=== PATIENT | female | born 1995 | race African-American/Black ===

== ENCOUNTER 2018-12-29 11:03 | Emergency (ER) | payer OTHER, SELFPAY ==
--- NOTE | 2018-12-29 11:51 | RAD ---
EXAM: Two views chest PROVIDED CLINICAL HISTORY: Cough COMPARISON: None FINDINGS: Cardiac and mediastinal silhouette appears within normal limits. Lungs appear free of significant opa city. No pleural fluid or pneumothorax apparent. IMPRESSION: No evidence for an acute cardiopulmonary process.
[2018-12-29 12:04] LABS: Bilirubin Negative (Negative); Blood, Urine Moderate (Negative); Clarity TURBID (Clear); Glucose, Urine (Dipstick) Negative (Negative); Leukocyte Large (Negative); Nitrite Positive (Negative); Protein, Urine (Dipstick) 100 mg/dL (Neg-Trace); pH, Urine 6.5 (5.0-9.0)
[2018-12-29 12:07] LABS: Bacteria/HPF 4+ HPF (None Seen); Hyaline Casts/LPF 7-10 HYALINE CAST LPF (0-3 Hyaline); Pathc Cast-AUWi Flag 2.17 (0-2.49); Squamous Epithelial 0-3 HPF (0-3)
[2018-12-29 13:56] LABS: Pregnancy Test - Urine (BHCG) Negative (Negative); Pregu Control Background? CLEAR/WHITE (CLR/WHITE); Pregu Control Bar Appear? YES (CONTROL BAR)
== END 2018-12-29 15:01 | disposition home or self-care (01) ==
LOC: ERS 11:03
DX: N39.0 Urinary tract infection, site not specified (principal); J06.9 Acute upper respiratory infection, unspecified; R11.0 Nausea
CPT/HCPCS: 71046; 81003; 81015; 81025; 87077; 87086; 87186

== ENCOUNTER 2019-01-13 10:13 | Emergency (ER) | payer SELFPAY ==
--- NOTE | 2019-01-13 11:56 | RAD ---
RADIOGRAPH CHEST 2 VIEWS: DATE: 01/13/2019 HISTORY: 23-year-old female with cough and chest pain. FINDINGS: The lungs are clear. The cardiomediastinal silhouette and hilar shadows appear normal. There is no pl eural effusion or pneumothorax. No osseous abnormality is identified. IMPRESSION: Normal
[2019-01-13] MEDS ORDERED: Dexamethasone 4 MG TAB ONE (12:17)
[2019-01-13] MEDS ORDERED: Dexamethasone 10 MG/ML VIAL ONE (12:17)
== END 2019-01-13 12:26 | disposition home or self-care (01) ==
LOC: ERS 10:13
DX: R05 Cough (principal)
CPT/HCPCS: 71046; 96372; J1100; J8540

== ENCOUNTER 2019-01-27 18:24 | Emergency (ER) | payer SELFPAY | END 2019-01-27 20:34 | disposition left against medical advice (07) | LOC: ERS 18:24 | DX: Z53.21 Procedure and treatment not carried out due to patient leaving prior to being seen by health care provider (principal) ==

== ENCOUNTER 2019-02-18 07:59 | Emergency (ER) | payer SELFPAY ==
[2019-02-18] MEDS ORDERED: Albuterol Sulfate 2.5 mg/0.5 ml Neb ONE (10:24)
--- NOTE | 2019-02-18 10:47 | RAD ---
EXAM: Chest 2 views: HISTORY: Cough COMPARISON: 01/13/2019 FINDINGS: There is a normal-sized cardiomediastinal silhouette. There is no evidence of consolidation, mass, or pleural effusion. The bones are unremarkable. IMPRESSION: No evidence of acute cardiopulmonary disease
[2019-02-18] MEDS ORDERED: Acetaminophen 500 MG TAB ONE (11:10)
[2019-02-18] MEDS ORDERED: Ondansetron ODT 4 MG TAB ONE (11:10)
[2019-02-18] MEDS ORDERED: Azithromycin 250 MG TAB ONE (11:10)
== END 2019-02-18 11:41 | disposition home or self-care (01) ==
LOC: ERS 07:59
DX: J20.9 Acute bronchitis, unspecified (principal)
CPT/HCPCS: 71046; 87804; 94640; J7611; J7620; Q0162

== ENCOUNTER 2019-08-10 21:47 | Emergency (ER) | payer OTHER, SELFPAY ==
[2019-08-10 22:15] LABS: #Basophils 0.1 thou/uL (0.0-0.2); #Eosinphils 0.1 thou/uL (0.0-0.7); #Monocytes 0.7 thou/uL (0.11-0.59); #Neutrophils 7.2 thou/uL (1.40-6.50); %Basophils 0.8 % (0.0-1.0); %Lymphocytes 26.7 % (21.0-51.0); %Monocytes 6.6 % (0.0-10.0); %Neutrophils 64.9 % (42.0-75.0); Hemoglobin 12.6 g/dL (12.0-16.0); Mean Corpuscular Hemoglobin 30.8 pg (27.0-31.0); Mean Corpuscular Volume 90.6 fL (78.0-98.0); Mean Platelet Volume 8.6 fL (7.4-10.4); Platelet Count 282 thou/uL (130-400); RBC Distribution Width 11.2 % (11.5-14.5); Red Blood Cell (RBC) Count 4.11 mill/uL (4.20-5.40); White Blood Cell (WBC) Count 11.1 thou/uL (4.8-10.8)
[2019-08-10 22:20] LABS: BHCG - Serum POSITIVE (NEGATIVE); Pregs Control Background? CLEAR/WHITE (CLR/WHITE); Pregs Control Bar Appear? YES (CONTROL BAR)
--- NOTE | 2019-08-10 23:41 | ULT ---
TRANSABDOMINAL TRANSVAGINAL PELVIC ULTRASOUND DATE:: 08/10/2019 10:19 PM CLINICAL HISTORY: with vaginal spotting. COMPARISON: None. TECHNIQUE: Grayscale, color Doppler and spectral Doppler images were obtained of the pelvis see a tra nsabdominal transvaginal approach Uterus: Size: 8.0 x 4.0 x 5.6 cm Mass: None Cervix: Within normal limits Endometrium: There is a single live intrauterine gestation with a pole and yolk sac identified. [place]-rump length measures 1.47 cm giving an estimated gestational age by ultrasound of 7 weeks 5 days. Estimated due date is March 22, 2020. There is a para gestational hemorrhage seen along the inferior and left lateral aspect of the gestati onal sac occupying less than 25% of the circumference. The largest collection measures 1.0 x 0.5 cm. Ovaries: Size: right measures 3.2 x 1.9 x 2.7 cm; left measures 4.2 x 3.0 x 4.5 cm Mass: There is a left ovarian cyst measuring 3.1 x 2.6 x 2.8 cm. Flow: Normal Cul-de-sac: Mild free fluid IMPRESSION: Single live intrauterine gestation with size and dates as above. There is a small subchorionic hemorr cindy seen along the inferior and left lateral aspect of the gestational sac. This occupies less than 25% of the gestational sac circumference. Continued sonographic and clinical follow-up is recomm ended. Left ovarian cyst measuring 3.1 cm. Mild free fluid
[2019-08-11 00:06] LABS: Bilirubin Negative (Negative); Blood, Urine 3+ (Negative); Clarity Turbid (Clear); Glucose, Urine (Dipstick) Normal (Negative); Leukocyte 500 Leu/uL (Negative); Nitrite Negative (Negative); Protein, Urine (Dipstick) 50 mg/dL (Neg-Trace); RBC/HPF Greater than 50 HPF (0-3); Urobilinogen 3 mg/dL (Less than 2); WBC/HPF Greater than 50 HPF (0-3)
[2019-08-11 00:09] LABS: Bacteria/HPF 1+ HPF (None Seen)
== END 2019-08-11 00:45 | disposition home or self-care (01) ==
LOC: ERS 21:47
DX: O20.0 Threatened abortion (principal); O23.41 Unspecified infection of urinary tract in pregnancy, first trimester; Z3A.01 Less than 8 weeks gestation of pregnancy
CPT/HCPCS: 36415; 76856; 81003; 81015; 84702; 84703; 85025; 86900; 86901; 87086